=== PATIENT | male | born 1930 | race Caucasian/White ===

== ENCOUNTER 2019-01-26 11:54 | Inpatient (IN) ==
[2019-01-26 14:05] LABS: Basophils % 0.1 % (0.1-2.0); Eosinophils # 0.1 K/mm3 (0.0-0.4); Eosinophils % 0.6 % (0.1-12.0); Hematocrit 47.1 % (42.0-52.0); Lymphocytes # 0.9 K/mm3 (0.7-4.5); Lymphocytes % 9.5 % (10-50); Mean Corpuscular HGB Conc 34.1 g/dL (31.8-35.4); Mean Corpuscular Hemoglobin 31.5 pg (27.0-31.2); Mean Corpuscular Volume 92.5 fl (80-94); Mean Platelet Volume 7.6 fl (7.4-10.4); Monocytes # 0.6 K/mm3 (0.1-1.0); Monocytes % 6.3 % (1.7-9.3); Neutrophils # 7.9 K/mm3 (1.8-7.8); Neutrophils % 83.4 % (37.0-80.0); Platelet Count 177 K/mm3 (142-424); Red Blood Count 5.09 M/mm3 (4.60-6.20); Red Cell Distribution Width 13.1 % (11.5-17.5); White Blood Count 9.4 K/mm3 (4.8-10.8)
[2019-01-26 14:09] LABS: Anion Gap 10.8 mEq/L (5-15); Calcium 9.4 mg/dL (8.5-10.1); Potassium 3.8 mmoL/L (3.5-5.1)
--- NOTE | 2019-01-26 14:43 | Pharmacy Consult Notes ---
[facility] Pharmacy VTE Monitoring - Patient Demographics Admission date: 01/26/19 Report Date: 01/26/19 Time: 14:40 Allergies/Adverse Reactions: Patient Allergies No Known Allergies Allergy (Unverified 09/08/17 14:37) Height: 1.73 m Weight: 78.16 kg - VTE Risk Labs: VTE Related Lab Results Hgb 16.0 g/dL (14.1-18.0) 01/26/19 13:48 Hct 47.1 % (42.0-52.0) 01/26/19 13:48 Plt Count 177 K/mm3 (142-424) 01/26/19 13:48 BUN 23 mg/dL (7-18) H 01/26/19 13:48 Creatinine 1.56 mg/dL (0.70-1.30) H 01/26/19 13:48 Estimated Creat Clear 36 mL/min (50-200) 01/26/19 13:48 - Prophylaxis Types of VTE Prophylaxis: TEDS Knee High (NINA HOSE ORDER PLACED)
--- NOTE | 2019-01-26 17:49 | History & Physical Report ---
*Admission Date: 01/26/19 *Chief complaint: Cough/congestion/pneumonia *History of present illness: 88-year-old white male who is enjoyed remarkably good health over the past decades who 4 days ago was seen in the office with a bronchitis, found to have cough and congestion with lung crackles, treated with intramuscular ceftriaxone and Augmentin. Failed to improve over the next couple of days, this morning was seen in the office, found to be dyspneic, crackles in the right lower lung field, admitted to hospital for pneumonia with failure of outpatient therapy. [facility] History I have reviewed the patient's past medical history: Yes Medical History: Reports:: Hyperlipidemia, Hypertension Denies:: Diabetes Mellitus Type 2 *Have you ever received a pneumonia vaccine?: Yes *Have you received a flu vaccine this season?: Yes Other Surgeries: Yes: Hernia Repair - *Social History Smoking Status: Former smoker Smoking End Date: 1996 Alcohol Intake: never *Occupational Status:: retired *Travel in the last 8 weeks: None - Psychiatric History Expresses thoughts of harming self/others: None Suicide Plan Description: No Plan Family Hx:: Coronary Artery Disease, Heart Attack, Other Review of Systems - Review of Systems Review of systems:: pertinent systems reviewed and negative unless documented below - Constitutional Reports fever(s), Denies anorexia, Denies body ache(s), Denies chills - Eyes Denies blind spots, Denies blurry vision - ENT Denies abnormal hearing, Denies bleeding gums - *Cardiovascular Reports shortness of breath, Reports shortness of breath with activity, Denies chest pain, Denies chest pain at rest - *Respiratory Reports change in phlegm color, Reports chest congestion, Reports cough, Reports shortness of breath - *Gastrointestinal Denies abdominal pain, Denies belching, Denies bloating Meds Home Medications Medication Instructions Recorded Confirmed Type Amlodipine Besylate [Amlodipine 5 mg PO HS 01/26/19 01/26/19 History 5mg tab] Aspirin [Aspirin 325mg Tab] 325 mg PO DAILY 01/26/19 01/26/19 History Ezetimibe/Simvastatin 1 each PO HS 01/26/19 01/26/19 History [Ezetimibe-Simvastatin 10-20 mg] Losartan/Hydrochlorothiazide 1 each PO DAILY 01/26/19 01/26/19 History [Losartan-Hctz 50-12.5 mg Tab] Allergies Allergy/AdvReac Type Severity Reaction Status Date / Time No Known Allergies Allergy Unverified 09/08/17 14:37 Exam Vital signs and Labs for Last 24 Hours: Temp Pulse Resp BP Pulse Ox 98.9 F 73 18 137/77 91 L 01/26/19 16:00 01/26/19 16:00 01/26/19 16:00 01/26/19 16:00 01/26/19 16:00 Laboratory Results - last 24 hr 01/26/19 13:48: WBC 9.4, RBC 5.09, Hgb 16.0, Hct 47.1, MCV 92.5, MCH 31.5 H, MCHC 34.1, RDW 13.1, Plt Count 177, MPV 7.6, Neut % (Auto) 83.4 H, Lymph % (Auto) 9.5 L, [place] % (Auto) 6.3, Eos % (Auto) 0.6, Baso % (Auto) 0.1, Neut # (Auto) 7.9 H, Lymph # (Auto) 0.9, [place] # (Auto) 0.6, Eos # (Auto) 0.1, Baso # (Auto) 0.0 01/26/19 13:48: Sodium 138, Potassium 3.8, Chloride 102, Carbon Dioxide 29, Anion Gap 10.8, BUN 23 H, Creatinine 1.56 H, Estimated Creat Clear 36, Estimated GFR 42 L, Est GFR ( Amer) 51 L, Glucose 103, Calcium 9.4 I & O for Last 24 hours: Intake & Output 01/24/19 01/25/19 01/26/19 01/27/19 11:59 11:59 11:59 11:59 Intake Total 300 / 300 Balance 300 / 300 Weight 172 lb 5 oz Microbiology Reports for the Last 24 Hours: Microbiology 01/26/19 14:00 Sputum - Expectorated Sputum Gram Stain - Final Narrative: Patient is pleasant and talkative. Dyspneic with talking. Lungs have rhonchi and crackles in the right base. Abdomen soft and nontender. No edema or clubbing. Alert, oriented x3, no skin rash. Oropharynx clear, no scleral icterus. No JVD. Assessment and Plan (1) Community acquired pneumonia Current visit: Yes Status: Acute Category: Medical Code(s): J18.9 - Pneumonia, unspecified organism Admit to hospital for IV antibiotics and fluids and pulmonary toilet given failure of outpatient antibiotic therapy (2) Hypertension, essential Current visit: Yes Status: Acute Category: Medical Code(s): I10 - Essential (primary) hypertension Continue amlodipine, hold diuretics given slightly elevated creatinine (3) Acute kidney injury Current visit: Yes Status: Acute Category: Medical Code(s): N17.9 - Acute kidney failure, unspecified Mild creatinine elevation. Follow tomorrow, IV fluids
[2019-01-27 07:14] LABS: Basophils % 0.2 % (0.1-2.0); Eosinophils # 0.1 K/mm3 (0.0-0.4); Eosinophils % 0.7 % (0.1-12.0); Hematocrit 42.5 % (42.0-52.0); Lymphocytes # 1.5 K/mm3 (0.7-4.5); Lymphocytes % 16.8 % (10-50); Mean Corpuscular HGB Conc 33.7 g/dL (31.8-35.4); Mean Corpuscular Hemoglobin 31.3 pg (27.0-31.2); Mean Corpuscular Volume 92.9 fl (80-94); Mean Platelet Volume 7.7 fl (7.4-10.4); Monocytes # 0.8 K/mm3 (0.1-1.0); Monocytes % 8.6 % (1.7-9.3); Neutrophils # 6.5 K/mm3 (1.8-7.8); Neutrophils % 73.8 % (37.0-80.0); Platelet Count 191 K/mm3 (142-424); Red Blood Count 4.58 M/mm3 (4.60-6.20); Red Cell Distribution Width 13.1 % (11.5-17.5); White Blood Count 8.9 K/mm3 (4.8-10.8)
[2019-01-27 07:23] LABS: Hemoglobin 14.5 g/dL (14.1-18.0)
[2019-01-27 07:28] LABS: Anion Gap 13.8 mEq/L (5-15); Calcium 8.6 mg/dL (8.5-10.1); Potassium 3.8 mmoL/L (3.5-5.1)
--- NOTE | 2019-01-27 10:39 | Discharge Summary ---
General - General Admission date:: 01/26/19 Discharge date: 01/27/19 HPI HPI: 88-year-old white male who is enjoyed remarkably good health over the past decades who 4 days ago was seen in the office with a bronchitis, found to have cough and congestion with lung crackles, treated with intramuscular ceftriaxone and Augmentin. Failed to improve over the next couple of days, this morning was seen in the office, found to be dyspneic, crackles in the right lower lung field, admitted to hospital for pneumonia with failure of outpatient therapy. Hospital Course Hospital Course: Patient was admitted to [facility] for IV antibiotics and hydration. He did well through the night. Reports shortness of breath has improved. He was able to produce sputum sample for culture which is pending. Patient is able to ambulate without significant dyspnea or dizziness and is tolerating oral intake well. Discharge home on Levaquin and prednisone. See [facility] rec for complete list. Fu with Dr. Mayberry in the office on Thursday. Objective Vital signs: Temp Pulse Resp BP Pulse Ox 98.3 F 70 19 138/83 92 L 01/27/19 08:00 01/27/19 10:05 01/27/19 08:00 01/27/19 08:00 01/27/19 08:00 Narrative: ALert and oriented x3. Rate and rhythm regular, + murmur. Lung sounds with scattered rhonchi throughout. Abdomen soft and nontender Results Labs on day of discharge: Labs from last 24 hours 01/27/19 01/27/19 01/26/19 06:25 06:25 13:48 WBC 8.9 RBC 4.58 L Hgb 14.5 Hct 42.5 MCV 92.9 MCH 31.3 H MCHC 33.7 RDW 13.1 Plt Count 191 MPV 7.7 Neut % (Auto) 73.8 Lymph % (Auto) 16.8 [place] % (Auto) 8.6 Eos % (Auto) 0.7 Baso % (Auto) 0.2 Neut # (Auto) 6.5 Lymph # (Auto) 1.5 [place] # (Auto) 0.8 Eos # (Auto) 0.1 Baso # (Auto) 0.0 Sodium 139 138 Potassium 3.8 3.8 Chloride 102 102 Carbon Dioxide 27 29 Anion Gap 13.8 10.8 BUN 22 H 23 H Creatinine 1.40 H 1.56 H Estimated Creat Clear 41 36 Estimated GFR 48 L 42 L Est GFR ( Amer) 58 L 51 L Glucose 93 103 Calcium 8.6 9.4 01/26/19 13:48 WBC 9.4 RBC 5.09 Hgb 16.0 Hct 47.1 MCV 92.5 MCH 31.5 H MCHC 34.1 RDW 13.1 Plt Count 177 MPV 7.6 Neut % (Auto) 83.4 H Lymph % (Auto) 9.5 L [place] % (Auto) 6.3 Eos % (Auto) 0.6 Baso % (Auto) 0.1 Neut # (Auto) 7.9 H Lymph # (Auto) 0.9 [place] # (Auto) 0.6 Eos # (Auto) 0.1 Baso # (Auto) 0.0 Sodium Potassium Chloride Carbon Dioxide Anion Gap BUN Creatinine Estimated Creat Clear Estimated GFR Est GFR ( Amer) Glucose Calcium Preliminary micro results at discharge 01/26/19 14:00 Sputum Culture - Preliminary Sputum - Expectorated Sputum DS: Diagnosis - Discharge Diagnosis (1) Community acquired pneumonia Status: Acute (2) Hypertension, essential Status: Acute (3) Acute kidney injury Status: Acute Discharge Plan - Patient Discharge Instructions ACTIVITY: Continue current activity DIET: continue same diet Patient Instructions: DI for Pneumonia -- Adult - Follow up Plan Follow up with: Rito Mayberry MD [Primary Care Provider] - 01/29/19 Disposition: Home, Self-[facility] Medications: Home Medications Medication Instructions Recorded Confirmed Type Amlodipine Besylate [Amlodipine 5 mg PO HS 01/26/19 01/26/19 History 5mg tab] Aspirin [Aspirin 325mg Tab] 325 mg PO DAILY 01/26/19 01/26/19 History Ezetimibe/Simvastatin 1 each PO HS 01/26/19 01/26/19 History [Ezetimibe-Simvastatin 10-20 mg] Calcium Polycarbophil [Fiber Tabs] 2 each PO DAILY 01/27/19 01/27/19 History Losartan Potassium [Cozaar] 50 mg PO DAILY 01/27/19 01/27/19 History levoFLOXacin [Levaquin 750mg 750 mg PO Q48H #4 tab 01/27/19 Rx tablet] predniSONE [Prednisone 20mg 20 mg PO BID #10 tab 01/27/19 Rx Tab] Prescriptions/Medication Reconciliation: New predniSONE [Prednisone 20mg Tab] 20 mg PO BID #10 tab levoFLOXacin [Levaquin 750mg tablet] 750 mg PO Q48H #4 tab Continued Aspirin [Aspirin 325mg Tab] 325 mg PO DAILY Amlodipine Besylate [Amlodipine 5mg tab] 5 mg PO HS Ezetimibe/Simvastatin [Ezetimibe-Simvastatin 10-20 mg] 1 each PO HS Calcium Polycarbophil [Fiber Tabs] 2 each PO DAILY Losartan Potassium [Cozaar] 50 mg PO DAILY Discontinued Amoxicillin/Potassium Clav [Augmentin 875-125 Tablet] 1 tab PO Q12H
== END 2019-01-27 10:50 | disposition home or self-care (01) | DRG 194 ==
LOC: 2ND 11:56
PROVIDERS: ADMIT Internal Medicine Adolescent Medicine; ATTEND Internal Medicine Adolescent Medicine
CPT/HCPCS: J0456